=== PATIENT | female | born 1985 | race Caucasian/White ===

== ENCOUNTER 2017-03-10 05:15 | Day surgery (SDC) | payer MEDICAID ==
[2017-03-08 15:33] LABS: BASOPHILS 0.2 % (0.0-2.0); EOSINOPHILS 1.5 % (0-7); HEMATOCRIT 38.4 % (36.0-48.0); HEMOGLOBIN 13.2 g/dL (12-16); IMMATURE GRANULOCYTES 0.1 % (0-5); LYMPHOCYTES 23.8 % (15-50); MCH 32.8 pg (26.0-34.0); MCHC 34.4 g/dL (31.0-37.0); MCV 95.5 fL (80.0-100.0); MEAN PLATELET VOLUME 9.3 fL (7.4-10.4); MONOCYTES 6.1 % (2-11); NEUTROPHILS 68.3 % (40-80); RBC 4.02 10x6/uL (4.00-5.40); RDW 11.9 % (11.5-14.5); WBC 8.7 10x3/uL (4.8-10.8)
[2017-03-08 15:35] LABS: PLATELET COUNT 268 10x3/uL (130-400)
[~2017-03-10] VITALS: Ht 157.5 cm; Wt 56.2 kg
--- NOTE | ~2017-03-10 | OP ---
PATIENT NAME: ORA MALIK MEDICAL RECORD: [id number] :85 LOCATION:[facility] ADMISSION DATE: SURGEON: DYAN JOHNSON MD DATE OF OPERATION: 03/10/2017 PREOPERATIVE DIAGNOSES: History of abnormal Paps and severe cervical dysplasia. POSTOPERATIVE DIAGNOSES: History of abnormal Paps and severe cervical dysplasia. PROCEDURE: LEEP excision of the ectocervix and endocervical curettage. SURGEON: Dyan Johnson MD ANESTHESIA: General and local. FINDINGS: No external abnormalities visible on colposcopic examination. ESTIMATED BLOOD LOSS: Minimal. COMPLICATIONS OF PROCEDURE: None. OPERATIVE NOTE: The patient was taken to the OR and under adequate general anesthesia, prepped and draped in the usual manner for vaginal procedures with external vaginal prep only. Colposcope was used to visualize the cervix. Acetic acid solution followed by Lugol solution was used to delineate any abnormalities. There were no visible external abnormalities. Local anesthetic was then administered circumferentially using lidocaine with epinephrine. A 15 mm LEEP loop was then used to excise the entire ectocervical circumference. This was followed by an endocervical curettage, which was sent as a separate specimen. At the end of procedure, the LEEP ball cautery device was used to obtain hemostasis at the LEEP margins and border. There was no bleeding at the end of procedure. Astringent was applied and the patient went to the recovery area in good condition. TRANSINT:[id number] Voice Confirmation ID: [id number] DOCUMENT ID: [id number] DYAN JOHNSON MD CC: [id number] DICTATION DATE: 03/10/17 08 GRAIN MIXER: 03/10/17 153 [facility] 03/10/[address] [address]
[~2017-03-10 05:15] MED LIST: DEMEROL50 MG PO; IBUPROFEN800 MG PO; PERCOCET 5-3251 TAB PO; PRENATAL COMPLE1 TAB PO
[2017-03-10 06:09] VITALS: BP 101/55; Ht 157.5 cm; Wt 56.2 kg
[2017-03-10 06:16] LABS: HCG URINE NEGATIVE (NEGATIVE)
--- NOTE | 2017-03-10 07:04 | HP ---
PATIENT: ORA MALIK MEDICAL RECORD: [id number] ACCOUNT: [id number] LOCATION:[place] : 85 ADMISSION DATE: 03/10/17 HISTORY AND PHYSICAL EXAMINATION HISTORY OF PRESENT ILLNESS: This patient is a 32-year-old 3, para 3 female with repetitive abnormal Paps and a history of severe dysplasia documented on specimen in 2012. She is scheduled for a repeat LEEP procedure on March 10. MEDICAL HISTORY: PREVIOUS SURGERIES: LEEP procedure. MEDICAL PROBLEMS: No hypertension, diabetes, kidney problems, thyroid problems. FAMILY HISTORY: Noncontributory. REVIEW OF SYSTEMS: Denies chest pain or dyspnea. HABITS: Smoker. Ethanol use. PHYSICAL EXAMINATION: VITAL SIGNS: Weight is 124 pounds, blood pressure 90/50. HEENT: Unremarkable. LUNGS: Clear. HEART: Regular rate and rhythm. PELVIC: Examination is current and deferred for anesthesia. EXTREMITIES: No cyanosis, clubbing or edema. NEUROLOGIC: Grossly intact. IMPRESSION: Repetitive abnormal paps and history of severe cervical dysplasia, LEEP procedure in the past. PLAN: After discussion of potential risks of surgery and potential benefits for diagnosis and treatment, plan a LEEP procedure and excision and endocervical curettage on March 10. All questions were answered. TRANSINT:[id number] Voice Confirmation ID: [id number] DOCUMENT ID: [id number] ERMIAS JOHNSON MD at 0704 CC: [id number] DICTATION DATE: 03/08/171706 NARROW GAUGE BRAKEMAN: 03/08/17 [id number] [place] [address]
--- NOTE | 2017-03-10 07:52 | NUR ---
[facility] CAUTERY USED FOR PROCEEDURE
--- NOTE | 2017-03-10 08:21 | NUR ---
PRE OP BP 95/60
--- NOTE | 2017-03-10 09:32 | NUR ---
0925--IV DC'D, PT UP TO DRESS AT THIS TIME. ZANDER SU
--- NOTE | 2017-03-10 09:40 | NUR ---
0935--DISCHARGE INSTRUCTIONS GIVEN, PT VERBALIZES UNDERSTANDING. PT OFF UNIT VIA DANIE. ZANDER SU
== END 2017-03-10 09:35 | disposition home or self-care (01) ==
LOC: D.OPS 05:15 → D.PAN 07:30 → D.OPS 09:35
PROVIDERS: Obstetrics & Gynecology
DX: N72 Inflammatory disease of cervix uteri (principal); D06.9 Carcinoma in situ of cervix, unspecified